=== PATIENT | female | born 1985 | race Two or more races ===

== ENCOUNTER 2024-12-20 08:15 | Inpatient (IN) | payer OTHER ==
[~2024-12-20] VITALS: Ht 162.6 cm; Wt 79.4 kg
[2024-12-20 09:04] VITALS: BP 136/79
[2024-12-20 09:10] VITALS: BP 115/79
[2024-12-20 09:16] LABS: BASO % 1.3 % (0.1-1.2); EOS # 0.07 (0.04-0.54); EOS % 1.5 % (0.7-7.0); LYMPH # 1.50 (1.18-3.74); LYMPH % 31.6 % (19.3-53.1); MEAN PLATELET VOLUME 9.90 fl (9.4-12.4); MONO # 0.43 (0.24-0.82); MONO % 9.1 % (4.7-12.5); NEUT # 2.68 (1.56-6.13); NEUT % 56.3 % (34.0-71.1); RED CELL DISTRIBUTION WIDTH 13.8 % (11.6-14.4)
[2024-12-20 09:37] LABS: INR 1.0
[2024-12-20 09:39] LABS: URINE APPEARANCE Clear; URINE BILIRRUBIN Negative (NEGATIVE); URINE BLOOD Negative; URINE COLOR Yellow; URINE GLUCOSE Negative (NEGATIVE); URINE KETONE Negative (NEGATIVE); URINE LEUKOCYTE Negative; URINE NITRATE Negative; URINE PROTEIN Negative (NEGATIVE); URINE UROBILINOGEN 0.2 E.U./dl
[2024-12-20 09:43] LABS: URINE BACTERIA 175.1 uL (0.0-1933); URINE EPITHELIAL CELLS 4.2 uL (0.0-38.8); URINE RBC 3.0 uL (0.0-20.8); URINE WBC 4.9 uL (0.0-23.2)
[2024-12-20 09:59] LABS: ALT/SGPT 26.0 U/L (12-78); AST/SGOT 10.0 U/L (15-37); BILIRUBIN TOTAL 0.54 mg/dL (0.3-1.2); BUN CREA RATIO 25.0 (7.0-25.0); CREATININE SERUM 0.56 mg/dL (0.55-1.02); GFR 121.15; GLOBULINA 3.3 G/DL (2.4-3.5); GLUCOSE FASTING 84.0 mg/dL (65-100); OSMOLALITY SERUM 283.0 MOSM/KG (275-295)
[2024-12-20 11:57] LABS: URINE CAST 0.14 uL (0.0-1.40)
[2024-12-28] MEDS ORDERED: CEFOXITIN SODIUM 2,000 MG VIAL IV ONE (15:00)
[2024-12-28] MEDS ORDERED: POVIDONE-IODINE 118 ML BOTT TOP ONE (15:00)
[2024-12-28] MEDS ORDERED: MORPHINE SULFATE 4 MG/ML VIAL IV ONE ×2 (16:35→17:30)
[2024-12-28] MEDS ORDERED: MEPERIDINE HCL/PF 50 MG/ML VIAL IM PRN (19:15)
[2024-12-28] MEDS ORDERED: KETOROLAC TROMETHAMINE 60 MG VIAL IM ONE (19:15)
[2024-12-28] MEDS ORDERED: PROMETHAZINE HCL 25 MG/ML AMPUL IM PRN (19:15)
[2024-12-28] MEDS ORDERED: RINGERS SOLUTION,LACTATED 1,000 ML IV SCH (19:15)
[2024-12-28 19:43] VITALS: BP 136/79
[2024-12-28] MEDS ORDERED: MORPHINE SULFATE 4 MG/ML VIAL IV PRN (20:00)
[2024-12-28 20:09] LABS: BASO % 0.3 % (0.1-1.2); EOS # 0.05 (0.04-0.54); EOS % 0.3 % (0.7-7.0); LYMPH # 0.91 (1.18-3.74); LYMPH % 5.7 % (19.3-53.1); MEAN PLATELET VOLUME 11.40 fl (9.4-12.4); MONO # 1.12 (0.24-0.82); MONO % 7.1 % (4.7-12.5); NEUT # 13.69 (1.56-6.13); NEUT % 86.3 % (34.0-71.1); RED CELL DISTRIBUTION WIDTH 13.9 % (11.6-14.4)
[2024-12-28] MEDS ORDERED: ACETAMINOPHEN 325 MG TABLET PO PRN (20:15)
[2024-12-28] MEDS ORDERED: FAMOTIDINE/PF 20 MG/2 ML VIAL IV PUSH ONE (20:45)
[2024-12-28] MEDS ORDERED: ONDANSETRON HCL 2 MG/ML VIAL IV ONE (20:45)
[2024-12-29 00:35] VITALS: BP 112/74
[2024-12-29 08:48] VITALS: BP 111/74
[2024-12-29] MEDS ORDERED: OxyCODONE HCL 5 MG TABLET (ROXICODONE) PO PRN (09:00)
[2024-12-29 13:49] VITALS: BP 117/78
[2024-12-29 16:00] VITALS: BP 116/79
[2024-12-30 00:41] VITALS: BP 95/65
[2024-12-30 08:29] VITALS: BP 100/63; O2SAT 99
[2024-12-30 12:40] VITALS: BP 102/66; O2SAT 98
[2024-12-30] MEDS ORDERED: DOCUSATE SODIUM 100MG CAP PO NR (13:45)
[2024-12-30 16:00] VITALS: BP 110/75
[2024-12-30] MEDS ORDERED: KETOROLAC TROMETHAMINE 60 MG VIAL IM NR (17:50)
[2024-12-30] MEDS ORDERED: SIMETHICONE 125 MG CAPSULE PO SCH (18:00)
[2024-12-31 00:54] VITALS: BP 116/75
[2024-12-31 08:27] VITALS: BP 101/68
[2024-12-31] MEDS ORDERED: IBUPROFEN800 MG PO (08:30)
== END 2024-12-31 10:33 | disposition home or self-care (01) | DRG 743 ==
LOC: ADM 08:15 → EDSTATUS 12-28 08:15 → CIR.AMB 12-28 08:15 → O/R 12-28 11:54 → OB/GYN 12-28 11:54
PROVIDERS: Obstetrics & Gynecology; ADMIT Obstetrics & Gynecology; ATTEND Obstetrics & Gynecology
PROC: 0UT70ZZ Resection of Bilateral Fallopian Tubes, Open Approach (ICD-10-PCS; 2024-12-28)
PROC: 0UT90ZZ Resection of Uterus, Open Approach (ICD-10-PCS; principal; 2024-12-28 14:30)
DX: D25.1 Intramural leiomyoma of uterus (principal); D25.2 Subserosal leiomyoma of uterus; D25.0 Submucous leiomyoma of uterus; Z90.710 Acquired absence of both cervix and uterus; N92.0 Excessive and frequent menstruation with regular cycle; N80.03 Adenomyosis of the uterus